=== PATIENT | male | born 1935 | race Caucasian/White ===

== ENCOUNTER 2018-08-22 18:27 | Inpatient (IN) | payer MEDICARE, BC ==
[~2018-08-22 18:27] MED LIST: ISOVUE-370 76%-LOCM 1 ML ONE
[2018-08-22] MEDS ORDERED: Ondansetron HCl/PF 4 MG/2 ML Vial ONE (19:13)
[2018-08-22 19:32] LABS: Hemoglobin 15.6 g/dL (14.0-18.0); Mean Corpuscular HGB CONC 33.8 g/dL (32.0-36.0); Mean Corpuscular Hemoglobin 33.4 pg (27.0-31.0); Mean Corpuscular Volume 98.8 fL (78.0-98.0); Platelet Count 457 thou/uL (130-400); RBC Distribution Width 12.4 % (11.5-14.5); Red Blood Cell (RBC) Count 4.66 mill/uL (4.70-6.10); White Blood Cell (WBC) Count 30.4 thou/uL (4.8-10.8)
[2018-08-22 19:49] LABS: ALT (SGPT) 52 U/L (8-55); AST (SGOT) 38 U/L (5-34); Albumin 4.1 g/dL (3.4-4.8); Alkaline Phosphatase 140 U/L (40-150); Anion Gap 22 mmol/L (10-20); BUN (Urea Nitrogen) 32 mg/dL (8.4-25.7); Bilirubin, Total 1.4 mg/dL (0.2-1.2); CK (CPK) 113 U/L (30-200); Calc. Creatinine Clearance 0 mL/min (70-130); Calcium 9.6 mg/dL (7.8-10.44); Carbon Dioxide 17 mmol/L (23-31); Chloride 102 mmol/L (98-107); Estimated GFR-MDRD 51; Globulin 3.8 g/dL (2.4-3.5); Glucose 177 mg/dL (83-110); Lipase 15 U/L (8-78); Potassium 4.4 mmol/L (3.5-5.1); Protein, Total 7.9 g/dL (5.8-8.1); Sodium 137 mmol/L (136-145)
[2018-08-22 19:52] LABS: Band 21 % (5-11); Lymphocytes 1 % (21-51); MDiff Complete? YES; Neutrophil 77 % (42-75); PLT Morphology Comment Appears Increased; RBC Morphology Normal; Reactive Lymphocytes 1 % (0-10); Vacuoles SLIGHT
[2018-08-22 20:07] LABS: Bilirubin Small (Negative); Blood, Urine Negative (Negative); Clarity CLEAR (Clear); Glucose, Urine (Dipstick) Negative (Negative); Leukocyte Trace (Negative); Nitrite Negative (Negative); Protein, Urine (Dipstick) 100 mg/dL (Neg-Trace); Specific Gravity, Urine 1.023 (1.002-1.036); pH, Urine 5.5 (5.0-9.0)
[2018-08-22 20:08] LABS: Bacteria/HPF None Seen HPF (None Seen); Hyaline Casts/LPF 7-10 HYALINE CAST LPF (0-3 Hyaline); Pathc Cast-AUWi Flag 1.88 (0-2.49); Squamous Epithelial 0-3 HPF (0-3); WBC/HPF 0-3 HPF (0-3)
--- NOTE | 2018-08-22 20:56 | RAD ---
CHEST ONE VIEW: 08/22/18 COMPARISON: None. HISTORY: Cough. FINDINGS: Diminished lung volumes. No consolidation or mass. No pneumothorax or osseous abnormalities. Normal cardiac silhouette when taking technique into consideration. IMPRESSION: No acute cardiopulmonary process. POS: [facility]
[2018-08-22] MEDS ORDERED: Aztreonam 2 GM in Sodium Chloride 0.9% 100 ML IVPB SCH (21:00)
[2018-08-22] MEDS ORDERED: Acetaminophen 650 MG Suppository PR PRN (22:14)
[2018-08-22] MEDS ORDERED: Acetaminophen 325 MG TAB PO PRN (22:14)
[2018-08-22] MEDS ORDERED: Dextrose 5% in Water 1,000 ML IV PRN (22:28)
[2018-08-22] MEDS ORDERED: Dextrose 50% Abboject 50 ML SYRINGE SLOW IVP PRN (22:28)
[2018-08-22] MEDS ORDERED: HumaLOG 300 UNITS/3 ML VIAL SC PRN (22:28)
[2018-08-22 23:23] LABS: Lactic Acid 4.4 mmol/L (0.5-2.2)
[2018-08-22] MEDS: Sodium Chloride 0.9% 1,000 ML IV SCH (23:52)
[2018-08-23 00:31] VITALS: BMI 29.6
--- NOTE | 2018-08-23 01:19 | HP ---
DATE OF ADMISSION: 08/22/2018 CHIEF COMPLAINT: Nausea, vomiting, and diarrhea. HISTORY OF PRESENT ILLNESS: This is an 82-year-old male with past medical history of diabetes mellit us type 2, hyperlipidemia, hypertension, who presented with nausea, vomiting, and diarrhea. Per the patient, this all started around 10:00 a.m. on the day of admission. Patient stated that his wa s the first started vomiting, the vomited about 5 times and the [facility] called their primary care physician and per primary care physician, the was instr ucted to come to the hospital to be evaluated. During the time when the was in the hospital, pe r the patient about 10:00 a.m., he started having abdominal pain and vomiting. Patient stated that h e vomited x7 nonbloody, nonbilious vomitus and the caregivers then advised the patient to also come t o the hospital to be checked. Per the patient, the caregivers were worried that whatever infection t hat the had, had been passed onto the patient as well. Patient states that they have not eaten anything new rather they both had food from the same kitchen and patient said that he had fried catfi sh and he believes that this is a very good food and normally the food from the facility that they li ve at has been great and he does not know what happened this time around. Patient stated during the time of his vomitus, he also had liquid diarrhea x3. Patient denies any headache, fever, chills, hem aturia, or dysuria. REVIEW OF SYSTEMS: Positive for nausea, vomiting, abdominal discomfort and diarrhea, otherwise as do cumented in the HPI. All other systems were reviewed and are negative. 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 FAMILY HISTORY: Reviewed and noncontributory. PAST SURGICAL HISTORY: Patient had surgery to the thigh after spider bite, history of hernia repair, and foot big toe amputation. PSYCHIATRIC HISTORY: No previous psychiatric history. SOCIAL HISTORY: Patient denies alcohol use. Patient denies any illicit drug use. Patient denies an y smoking. ALLERGIES: Patient is allergic to PENICILLINS. CURRENT MEDICATIONS: Patient is on aspirin 81 mg, amlodipine 5 mg, Centrum, metformin 1000 mg, and i nsulin. PHYSICAL EXAMINATION: VITAL SIGNS: Blood pressure 142/78, pulse 125, respiratory rate of 16, temperature of 100, O2 satura tion of 97 on room air. GENERAL: Patient is lying in his bed comfortably, able to speak in full sentences, alert and oriente d x3, not in any distress. HEENT: Normocephalic, atraumatic. Pupils are equally round and reactive to light. Extraocular musc les are intact. No scleral icterus. Patient has left eye blindness and patient sees shadows from th e right eye. Patient is not able to see clearly. NECK: Supple, nontender, nondistended. Trachea is midline. No JVDs. RESPIRATORY: Clear to auscultation bilaterally. No wheezing, no rales, no rhonchi. CARDIOVASCULAR: Positive S1, S2. Regular rate and rhythm. No murmurs, no gallops or rubs appreciat ed. ABDOMEN: Obese abdomen, nontender, nondistended, positive bowel sounds in all quadrants. No masses. No pulsatile masses. No peritoneal signs. No rigidity, no guarding. EXTREMITIES: Upper extremities, patient has 5/5 upper extremity strength and 5/5 lower extremity str ength, good pulses at the upper extremity and lower extremity bilaterally. Patient has right big toe amputation. There is no edema noted. NEUROLOGIC: Cranial nerves II-XII grossly intact. No neurologic deficits noted. SKIN: Warm, dry, and intact. PSYCHIATRIC: Alert, oriented x3, normal affect, very pleasant. IMAGING: Chest x-ray showed no cardiopulmonary process. CT of the abdomen and pelvis with contrast. There is some inflammation of small terminal valvular. ED COURSE: Patient was started on vancomycin and Azactam and patient was given normal saline. LABORATORY DATA: WBC is 30.4, hemoglobin 15.6, hematocrit 46.1, MCV is 98.8, RDW 12.4, platelet coun t is 157, bands of 21. Chemistry: Sodium 137, potassium is 4.4, chloride is 102, carbon dioxide of 17, BUN is 22, creatinine is 1.34, GFR is 51, glucose 177. Lactic acid of 6.8. Total bilirubin is 1 .4, AST is 38, ALT is 62, alkaline phosphatase 140. Creatine kinase 113, lipase of 15. Urinalysis negative for nitrites, trace leukoesterase. ASSESSMENT AND PLAN: This is an 82-year-old male being admitted for vomiting and diarrhea, likely se condary to gastroenteritis. At this point, we will continue patient on IV fluids. We will follow up on lactic acid. We will continue antibiotics. We will follow up on morning labs and we will follow up on blood cultures. We will adjust antibiotics based on cultures. 1. Diarrhea. We have ordered stool cultures and Clostridium difficile. We will follow up on these cultures. 2. Acute kidney injury most likely prerenal in etiology. Patient has been having vomiting and diarr hea. Therefore, this can be contributory factor for patient's elevated creatinine. At this point, w e are hydrating the patient with IV fluids. We will follow up on morning labs. 3. History of diabetes mellitus. We will continue patient on insulin sliding scale. 4. Hypertension. Currently, patient's blood pressure is within normal limits. We will give patient blood pressure medication as needed. We will monitor the patient's blood pressure closely. 5. Hyperlipidemia. We will continue patient on his current management. 6. Deep venous thrombosis and gastrointestinal prophylaxis.
[2018-08-23 05:37] LABS: #Eosinphils 0.1 thou/uL (0.0-0.7); #Monocytes 0.6 thou/uL (0.11-0.59); %Basophils 0.2 % (0.0-1.0); %Eosinophils 0.4 % (0.0-10.0); %Neutrophils 86.5 % (42.0-75.0); Hemoglobin 13.2 g/dL (14.0-18.0); Mean Corpuscular HGB CONC 33.5 g/dL (32.0-36.0); Mean Corpuscular Hemoglobin 33.6 pg (27.0-31.0); Mean Platelet Volume 7.7 fL (7.4-10.4); Platelet Count 348 thou/uL (130-400); RBC Distribution Width 12.5 % (11.5-14.5); Red Blood Cell (RBC) Count 3.92 mill/uL (4.70-6.10); White Blood Cell (WBC) Count 19.6 thou/uL (4.8-10.8)
[2018-08-23 06:01] LABS: ALT (SGPT) 39 U/L (8-55); AST (SGOT) 45 U/L (5-34); Albumin 3.1 g/dL (3.4-4.8); Alkaline Phosphatase 87 U/L (40-150); Anion Gap 12 mmol/L (10-20); BUN (Urea Nitrogen) 31 mg/dL (8.4-25.7); BUN/Creatinine Ratio 26.72; Bilirubin, Total 0.9 mg/dL (0.2-1.2); Calc. Creatinine Clearance 67 mL/min (70-130); Calcium 8.2 mg/dL (7.8-10.44); Carbon Dioxide 23 mmol/L (23-31); Chloride 108 mmol/L (98-107); Estimated GFR-MDRD 61; Globulin 3.5 g/dL (2.4-3.5); Glucose 94 mg/dL (83-110); Phosphorus 2.6 mg/dL (2.3-4.7); Potassium 4.3 mmol/L (3.5-5.1); Protein, Total 6.6 g/dL (5.8-8.1); Sodium 139 mmol/L (136-145)
[2018-08-23] MEDS: Aztreonam 1 GM in Sodium Chloride 0.9% 100 ML IVPB SCH ×3 (06:22→21:34)
[2018-08-23] MEDS: Vancomycin HCl 750 MG in Sodium Chloride 0.9% 250 ML 250 ML IVPB SCH ×2 (09:05→20:05)
[2018-08-23] MEDS: Enoxaparin Sodium 30 MG/0.3 ML SYRINGE SC SCH (09:09)
[2018-08-23] MEDS: Famotidine 20 MG TAB PO SCH (09:09)
[2018-08-23] MEDS: Famotidine/PF 20 mg/2ml Vial SLOW IVP SCH (09:09)
--- NOTE | 2018-08-23 10:27 | PQF ---
CLINICAL DOCUMENTATION IMPROVEMENT CLARIFICATION FORM: ICD-10 Updated PLEASE DO AN ADDENDUM TO THE PROGRESS NOTE WITH ANY DOCUMENTATION UPDATES OR ADDITIONS AND CARRY THROUGH TO DC SUMMARY. THANK YOU. DATE: 08/23/18 ATTN: DR. CURRIE Please exercise your independent, professional judgment in responding to the clarification form. Clinical indicators are provided on the bottom of this form for your review Please check appropriate box(es): [ x] Sepsis due to: (Pna, UTI, gangrenous gall bladder, etc.) Gastroenteritis Due to: [ ] Device (please specify) [ ] Implant [ ] Graft [ ] Infusion [ ] SIRS due to non-infectious process (please specify etiology) [ ] with organ dysfunction [ ] without organ dysfunction [ ] Severe sepsis with acute organ dysfunction of: (Examples: respiratory failure, encephalopathy, acute kidney failure, other) [ ] Septic Shock [ ] Localized infection without sepsis [ ] Other diagnosis [ ] Unable to determine In addition, please specify: Present on Admission (POA): [ ] Yes [ ] No [ ] Unable to determine For continuity of documentation, please document condition throughout progress notes and discharge summary. Thank You. CLINICAL INDICATORS - SIGNS / SYMPTOMS / LABS ER NOTE: "SEPSIS" 08/22 WBC: 30.4 BANDS 21 LACTIC ACID 6.8 08/23: RR 24 RISKS: NAUSEA (ER NOTE) VOMITING (ER NOTE) DIARRHEA (ER NOTE) TREATMENT: SERIAL LABS BLOOD CULTURES IV AZACTAM (ER-PRESENT) IV VANCOMYCIN (ER-PRESENT) IV FLUIDS (ER-PRESENT) (This form is maintained as a part of the permanent medical record) 2014 [employer]. All Rights Reserved ELIANA [email or web address] Office: [phone] [facility]
--- NOTE | 2018-08-23 10:36 | CT ---
ABDOMEN CT WITH CONTRAST PELVIC CT WITH CONTRAST 08/22/18 HISTORY: Toxic appearing patient. Lactic acidosis. Vomiting. Nausea and diarrhea. COMPARISON: None. FINDINGS: ABDOMEN CT: Subpleural lymph node along the middle lobe measuring 4 mm. Chronic changes of the lung bases are richie pected. Heart size is normal. No significant pericardial fluid. The descending thoracic aorta and abd ominal aorta have a normal caliber. No periaortic fat stranding. Symmetric attenuation of the psoas m uscles. Portal vein is patent. CT evidence of cholelithiasis without evidence of cholecystitis. Liver, spleen, pancreas, and adrenal glands have appropriate enhancement. No gastrohepatic, retrocrur al or periportal lymphadenopathy. Nonspecific peripancreatic lymph node measuring 1.2 x 1.1 cm. Subcentimeter hypodensity in the left and right kidney cannot be further characterized. 1.1 cm hypode nsity in the lower pole of the left kidney has some liner densities which may represent enhancement. Evaluation is incomplete. Bilaterally, no obstructive uropathy. No mesenteric mass, lymphadenopathy, free air or free fluid. Limited evaluation of the alimentary canal by the lack of oral contrast. Gastric mucosa, duodenum, an d small bowel loops have an overall normal caliber. Ileocecal junction is normal. Normal caliber appe ndix. There is evidence of diverticulosis. No evidence of diverticulitis. Scattered fecal material in a nondistended, nondilated colon. PELVIC CT: Urinary bladder is unremarkable. No pelvic mass, lymphadenopathy, free air or free fluid. Mild prosta tic hypertrophy. Left inguinal hernia containing mesenteric fat. No lytic or blastic lesions in the o sseous structures. 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 IMPRESSION: 1. No acute abnormality in the abdomen or pelvis. 2. CT evidence of cholelithiasis without evidence of cholecystitis. 3. Diverticulosis, without evidence of diverticulitis. 4. Indeterminate lesion in the lower pole of the left kidney. Better interrogation with a noneme rgent abdomen with and without contrast MRI is recommended. POS: [facility]
--- NOTE | 2018-08-23 10:48 | PDOC.EVN ---
Event Note - Event Note Event Note: Doing well overall. His vomiting has stopped. Still having some diarrhea. Workup negative, suggesting viral etiology. WBC coming down quickly. Continue fluids, IV abx and start clear liquids at patient request. Abd. exam is benign.
[2018-08-23] MEDS: Sodium Chloride 0.9% 1,000 ML IV SCH (14:11)
[2018-08-24] MEDS: Aztreonam 1 GM in Sodium Chloride 0.9% 100 ML IVPB SCH (05:15)
[2018-08-24] MEDS: Sodium Chloride 0.9% 1,000 ML IV SCH (05:15)
[2018-08-24 08:21] LABS: #Eosinphils 0.3 thou/uL (0.0-0.7); #Monocytes 0.8 thou/uL (0.11-0.59); #Neutrophils 5.2 thou/uL (1.40-6.50); %Basophils 0.4 % (0.0-1.0); %Lymphocytes 23.6 % (21.0-51.0); %Monocytes 9.6 % (0.0-10.0); %Neutrophils 62.4 % (42.0-75.0); Hemoglobin 12.1 g/dL (14.0-18.0); Mean Corpuscular HGB CONC 33.3 g/dL (32.0-36.0); Mean Corpuscular Hemoglobin 33.1 pg (27.0-31.0); Mean Corpuscular Volume 99.4 fL (78.0-98.0); Mean Platelet Volume 7.6 fL (7.4-10.4); Platelet Count 291 thou/uL (130-400); RBC Distribution Width 12.4 % (11.5-14.5); Red Blood Cell (RBC) Count 3.67 mill/uL (4.70-6.10); White Blood Cell (WBC) Count 8.4 thou/uL (4.8-10.8)
[2018-08-24 08:37] LABS: Anion Gap 10 mmol/L (10-20); BUN (Urea Nitrogen) 19 mg/dL (8.4-25.7); Calc. Creatinine Clearance 84 mL/min (70-130); Calcium 7.6 mg/dL (7.8-10.44); Carbon Dioxide 22 mmol/L (23-31); Chloride 108 mmol/L (98-107); Estimated GFR-MDRD 79; Glucose 85 mg/dL (83-110); Potassium 3.6 mmol/L (3.5-5.1); Sodium 136 mmol/L (136-145); Vancomycin, Trough 9.9 ug/mL
[2018-08-24] MEDS ORDERED: Prevnar 13-Val Conj/PF 0.5 ML SYRINGE IM ONE (09:00)
[2018-08-24] MEDS ORDERED: Vancomycin HCl 1.25 GM in Sodium Chloride 0.9% 250 ML 250 ML IVPB SCH (09:00)
[2018-08-24] MEDS: Famotidine/PF 20 mg/2ml Vial SLOW IVP SCH (09:41)
[2018-08-24] MEDS: Famotidine 20 MG TAB PO SCH (09:41)
[2018-08-24] MEDS: Enoxaparin Sodium 30 MG/0.3 ML SYRINGE SC SCH (09:41)
--- NOTE | 2018-08-24 14:43 | PDOC.PN ---
- Subjective Encounter Start Date: 08/24/18 Encounter Start Time: 10:15 Feeling much better overall. Ready for regular food. Eager to go home. His has been here as well and she is discharging today. - Objective Resuscitation Status: Resuscitation Status DNR:Do Not Resuscitate Vital Signs & Weight: Vital Signs (12 hours) Temp Pulse Resp BP Pulse Ox 08/24/18 12:13 97.9 F 70 24 H 124/64 92 L 08/24/18 09:35 96 08/24/18 08:00 97.8 F 66 24 H 117/56 L 86 L 08/24/18 04:00 99.2 F 69 20 108/57 L 92 L Weight Weight 204 lb 9 oz I&O: 08/23/18 08/24/18 08/25/18 06:59 06:59 06:59 Intake Total 420 3550 Output Total 500 400 Balance -80 3150 Result Diagrams: 08/24/18 07:55 08/24/18 07:55 Additional Labs: Accuchecks 08/24/18 08/24/18 08/23/18 10:55 05:55 20:53 POC Glucose 140 H 81 103 08/23/18 16:49 POC Glucose 93 Phys Exam - Physical Examination Constitutional: NAD Blind Respiratory: no wheezing, no rales, no rhonchi, clear to auscultation bilateral Cardiovascular: RRR, no significant murmur Gastrointestinal: soft, non-tender, no distention, positive bowel sounds Musculoskeletal: no edema Psychiatric: normal affect Dx/Plan (1) Sepsis Code(s): A41.9 - SEPSIS, UNSPECIFIED ORGANISM Status: Acute Comment: Resolved. (2) Gastroenteritis Code(s): K52.9 - NONINFECTIVE GASTROENTERITIS AND COLITIS, UNSPECIFIED Status : Acute Comment: Resolved. Advance diet. (3) Hypoxia Code(s): R09.02 - HYPOXEMIA Status: Acute Comment: CXR. PRN oxygen. (4) Acute kidney injury Code(s): N17.9 - ACUTE KIDNEY FAILURE, UNSPECIFIED Status: Acute Comment: Resolved with fluid. - Plan * Advance diet. CXR.
--- NOTE | 2018-08-24 14:50 | RAD ---
PORTABLE CHEST 1 VIEW: Date: 08/24/18 Time: 1225 hours HISTORY: Dyspnea. FINDINGS/IMPRESSION: Comparison made with exam of 08/22/18. The heart size is normal. No lobar consolidation, pneumothoraces, or large effusions are seen. No beth dence of nic pulmonary edema. POS: [facility]
[2018-08-24] MEDS: metroNIDAZOLE 250 MG TAB PO SCH ×2 (15:40→20:12)
[2018-08-24] MEDS: Ciprofloxacin 500 MG TAB PO SCH (20:12)
[2018-08-25 05:38] LABS: #Eosinphils 0.3 thou/uL (0.0-0.7); #Lymphocytes 2.4 thou/uL (1.20-3.40); #Monocytes 0.8 thou/uL (0.11-0.59); #Neutrophils 3.9 thou/uL (1.40-6.50); %Basophils 0.3 % (0.0-1.0); %Eosinophils 4.5 % (0.0-10.0); %Lymphocytes 32.7 % (21.0-51.0); %Monocytes 10.3 % (0.0-10.0); %Neutrophils 52.2 % (42.0-75.0); Hemoglobin 13.1 g/dL (14.0-18.0); Mean Corpuscular HGB CONC 34.2 g/dL (32.0-36.0); Mean Corpuscular Hemoglobin 33.7 pg (27.0-31.0); Mean Corpuscular Volume 98.6 fL (78.0-98.0); Mean Platelet Volume 7.5 fL (7.4-10.4); Platelet Count 323 thou/uL (130-400); RBC Distribution Width 12.5 % (11.5-14.5); Red Blood Cell (RBC) Count 3.89 mill/uL (4.70-6.10); White Blood Cell (WBC) Count 7.4 thou/uL (4.8-10.8)
[2018-08-25 05:41] LABS: Anion Gap 10 mmol/L (10-20); BUN (Urea Nitrogen) 12 mg/dL (8.4-25.7); Calc. Creatinine Clearance 91 mL/min (70-130); Calcium 8.2 mg/dL (7.8-10.44); Carbon Dioxide 24 mmol/L (23-31); Chloride 109 mmol/L (98-107); Estimated GFR-MDRD 87; Glucose 110 mg/dL (83-110); Potassium 3.8 mmol/L (3.5-5.1); Sodium 139 mmol/L (136-145)
[2018-08-25] MEDS: Ciprofloxacin 500 MG TAB PO SCH (08:23)
[2018-08-25] MEDS: Enoxaparin Sodium 30 MG/0.3 ML SYRINGE SC SCH (08:23)
[2018-08-25] MEDS: metroNIDAZOLE 250 MG TAB PO SCH (08:24)
[2018-08-25] MEDS: Famotidine/PF 20 mg/2ml Vial SLOW IVP SCH (08:24)
[2018-08-25] MEDS: Famotidine 20 MG TAB PO SCH (08:24)
[2018-08-25 11:53] VITALS: BP 156/74; TEMP 98.5
--- NOTE | 2018-08-25 23:08 | DIS ---
DATE OF ADMISSION: 08/22/2018 DATE OF DISCHARGE: 08/25/2018 DISCHARGE DIAGNOSES: 1. Sepsis. 2. Acute gastroenteritis. 3. Acute renal insufficiency. 4. Diabetes mellitus. 5. Hypertension. 6. Hyperlipidemia. HISTORY: The patient is an 82-year-old male who presented via the emergency department complaining of significant intractable nausea, vomiting, and diarrhea. The patient was initially noted to have a white count of 30,000 with 21% bands. He was initially afebrile and he was felt to be suffering from sepsis related to acute gastroenteritis. Lactic acid was initially elevated at 6.8. His creatinine was slightly elevated at 1.34. HOSPITAL COURSE: The patient was admitted to the hospital with sepsis, started on broad spectrum antibiotics to cover GI sources. He had initial aggressive hydration. Lactic acid level did come down. His creatinine subsequently normalized as well. White count came down to the normal range on the day of discharge at 7.4. His symptoms of nausea, vomiting, and diarrhea had resolved very promptly after the time of his admission. He was able to return to regular diet without much difficulty. The patient did have slight hypoxia the day prior to discharge. It is felt that this might be due to some volume resuscitation. He had a chest x-ray which failed to reveal any significant pathology. By the following day, he was able to come off the oxygen and has reasonably good room air saturations. With the patient on p.o. antibiotics, tolerating a regular diet, being asymptomatic with a normalized white count and creatinine, he was felt to be stable for discharge to home. DISCHARGE PLAN: The patient is discharged home. He is to continue a diabetic diet. His activity level is as tolerated. DISCHARGE MEDICATIONS: He will be prescribed Cipro 500 mg b.i.d. and metronidazole 250 mg t.i.d. He will continue with metformin, fish oil, Centrum Silver, Tresiba, aspirin, Norvasc, vitamin C. He will have [facility] and he is to follow up with Dr. John within 7 days. He can return to the emergency department should he have any problems prior to that time. HONG
== END 2018-08-25 13:48 | disposition home health service (06) | DRG 872 ==
LOC: ERS 18:27 → 2NO 20:40
PROVIDERS: ADMIT Internal Medicine; ATTEND Internal Medicine
DX: A41.9 Sepsis, unspecified organism (principal); N17.9 Acute kidney failure, unspecified; A09 Infectious gastroenteritis and colitis, unspecified; E11.9 Type 2 diabetes mellitus without complications; I10 Essential (primary) hypertension; E78.5 Hyperlipidemia, unspecified; E11.319 Type 2 diabetes mellitus with unspecified diabetic retinopathy without macular edema; H54.62 Unqualified visual loss, left eye, normal vision right eye; Z88.0 Allergy status to penicillin; Z79.899 Other long term (current) drug therapy; Z79.82 Long term (current) use of aspirin; Z79.84 Long term (current) use of oral hypoglycemic drugs; Z79.4 Long term (current) use of insulin; R09.02 Hypoxemia
CPT/HCPCS: 36415; 36416; 71045; 74177; 80048; 80053; 80069; 80202; 81003; 81015; 82550; 83605; 83690; 85025; 87040; 87045; 87046; 87086; 87324; 87449; 87899; 96361; 96365; 96367; 96375; J1650; J2405; J3370; J3490; J7050; S0028

== ENCOUNTER 2019-11-04 16:12 | Emergency (ER) | payer MEDICARE, BC ==
[2019-11-04 16:50] LABS: #Eosinphils 0.3 thou/uL (0.0-0.7); #Monocytes 0.8 thou/uL (0.11-0.59); #Neutrophils 8.9 thou/uL (1.40-6.50); %Basophils 0.4 % (0.0-1.0); %Eosinophils 2.6 % (0.0-10.0); %Lymphocytes 16.5 % (21.0-51.0); %Monocytes 6.3 % (0.0-10.0); %Neutrophils 74.2 % (42.0-75.0); Hemoglobin 14.2 g/dL (14.0-18.0); Mean Corpuscular HGB CONC 34.1 g/dL (32.0-36.0); Mean Corpuscular Hemoglobin 33.8 pg (27.0-31.0); Mean Platelet Volume 7.5 fL (7.4-10.4); Platelet Count 383 thou/uL (130-400); RBC Distribution Width 12.2 % (11.5-14.5); Red Blood Cell (RBC) Count 4.19 mill/uL (4.70-6.10)
[2019-11-04 17:18] LABS: ALT (SGPT) 36 U/L (8-55); AST (SGOT) 34 U/L (5-34); Albumin 4.1 g/dL (3.4-4.8); Alkaline Phosphatase 131 U/L (40-110); Anion Gap 17 mmol/L (10-20); BUN (Urea Nitrogen) 22 mg/dL (8.4-25.7); Bilirubin, Total 0.5 mg/dL (0.2-1.2); Calc. Creatinine Clearance 0 mL/min (70-130); Calcium 9.6 mg/dL (7.8-10.44); Carbon Dioxide 21 mmol/L (23-31); Chloride 101 mmol/L (98-107); Estimated GFR-MDRD 58; Globulin 3.5 g/dL (2.4-3.5); Glucose 186 mg/dL (83-110); Potassium 4.2 mmol/L (3.5-5.1); Protein, Total 7.6 g/dL (5.8-8.1); Sodium 135 mmol/L (136-145)
--- NOTE | 2019-11-04 17:31 | CT ---
CT head without contrast: Multiple axial tomograms obtained through the head without IV enhancement. INDICATIONS: Fall with injury to head COMPARISON: None FINDINGS: Ventricles have normal size and position. No evidence of intracranial mass, hemorrhage, edema, or infarct. Visualized sinuses and mastoids appear clear. Bony calvarium appears unremarkable. IMPRESSION: No acute finding
--- NOTE | 2019-11-04 17:35 | CT ---
CT cervical spine without contrast: Multiple axial tones obtained through cervical spine with multiplanar reconstruction. INDICATIONS: trauma with cervical spine injury COMPARISON: none FINDINGS: Cervical vertebra maintain normal height and alignment.. Disc spaces are normal. Posterior elements are normally aligned. No evidence of fracture. IMPRESSION: No acute finding
[2019-11-04] MEDS ORDERED: Bacitracin 1 PK ONE (18:02)
[2019-11-04] MEDS ORDERED: Ibuprofen 200 MG TAB ONE (18:02)
== END 2019-11-04 20:01 | disposition home or self-care (01) ==
LOC: ERS 16:12
DX: S01.01XA Laceration without foreign body of scalp, initial encounter (principal); E11.9 Type 2 diabetes mellitus without complications; E78.5 Hyperlipidemia, unspecified; E78.00 Pure hypercholesterolemia, unspecified; I10 Essential (primary) hypertension; Z79.84 Long term (current) use of oral hypoglycemic drugs; Z79.82 Long term (current) use of aspirin; Z79.899 Other long term (current) drug therapy; W01.198A Fall on same level from slipping, tripping and stumbling with subsequent striking against other object, initial encounter
CPT/HCPCS: 12002; 36415; 70450; 72125; 80053; 85025; 93005

== ENCOUNTER 2020-04-04 18:42 | Inpatient (IN) | payer MEDICARE, BC ==
[2020-04-04] MEDS ORDERED: Lidocaine 1% (PF) 30 ML VIAL ONE (19:50)
[2020-04-04 19:58] LABS: #Basophils 0.1 thou/uL (0.0-0.2); #Eosinphils 0.1 thou/uL (0.0-0.7); #Lymphocytes 2.2 thou/uL (1.20-3.40); #Neutrophils 14.3 thou/uL (1.40-6.50); %Basophils 0.4 % (0.0-1.0); %Eosinophils 0.6 % (0.0-10.0); %Lymphocytes 12.4 % (21.0-51.0); %Monocytes 5.7 % (0.0-10.0); Hemoglobin 13.7 g/dL (14.0-18.0); Mean Corpuscular HGB CONC 32.9 g/dL (32.0-36.0); Mean Platelet Volume 8.1 fL (7.4-10.4); Platelet Count 361 thou/uL (130-400); RBC Distribution Width 12.6 % (11.5-14.5); Red Blood Cell (RBC) Count 4.14 mill/uL (4.70-6.10); White Blood Cell (WBC) Count 17.7 thou/uL (4.8-10.8)
[2020-04-04 20:18] LABS: ALT (SGPT) 46 U/L (8-55); AST (SGOT) 44 U/L (5-34); Albumin 3.7 g/dL (3.4-4.8); Alkaline Phosphatase 152 U/L (40-110); Anion Gap 18 mmol/L (10-20); BUN (Urea Nitrogen) 23 mg/dL (8.4-25.7); Bilirubin, Total 0.5 mg/dL (0.2-1.2); CK (CPK) 189 U/L (30-200); Calc. Creatinine Clearance 0 mL/min (70-130); Calcium 9.5 mg/dL (7.8-10.44); Carbon Dioxide 20 mmol/L (23-31); Chloride 104 mmol/L (98-107); Estimated GFR-MDRD 64; Globulin 3.4 g/dL (2.4-3.5); Glucose 145 mg/dL (83-110); Potassium 4.1 mmol/L (3.5-5.1); Protein, Total 7.1 g/dL (5.8-8.1); Sodium 138 mmol/L (136-145)
--- NOTE | 2020-04-04 20:18 | RAD ---
SINGLE VIEW OF THE CHEST: 04/04/20 COMPARISON: 11/24/17 HISTORY: Fall from standing. FINDINGS: Single view of the chest shows normal sized cardiomediastinal silhouette. There is stable obscurity o f the left hemidiaphragm which may represent scarring in the left lung base. No obvious consolidation , mass or pleural effusion are seen. IMPRESSION: No evidence of acute cardiopulmonary disease. POS: [facility]
--- NOTE | 2020-04-04 21:02 | CT ---
CT CERVICAL SPINE WITHOUT CONTRAST: 04/04/20 COMPARISON: None. HISTORY: Head trauma with neck pain. TECHNIQUE: Multiple contiguous axial images were obtained in a CT of the cervical spine without contrast. Sagitt al and coronal reformats were performed. FINDINGS: Moderate degenerative changes are seen in the mid cervical spine, unchanged. The vertebral bodies dem onstrate normal height and alignment without acute fracture or subluxation. No prevertebral soft tiss ue swelling is seen. The posterior facets are well aligned. Normal alignment of the skull base with the cervical spine is seen. IMPRESSION: Degenerative changes of the cervical spine without acute osseous abnormality. POS: [facility]
--- NOTE | 2020-04-04 21:05 | CT ---
CT OF THE BRAIN WITHOUT CONTRAST: 04/04/20 COMPARISON: 11/04/19 HISTORY: Fall from standing with head trauma. TECHNIQUE: Multiple contiguous axial images were obtained in a CT of the brain without contrast. FINDINGS: The brain is normal in morphology and attenuation without focal lesions or confluent areas of infarct ion. There is no evidence of hydrocephalus, intracranial hemorrhage, or extra-axial fluid collection. Calcification of the left globe is again seen. Soft tissue swelling is seen in the left periorbital s oft tissues. The visualized paranasal sinuses and mastoid air cells are well aerated. IMPRESSION: No evidence of acute intracranial abnormality. POS: [facility]
[2020-04-04 21:40] LABS: Bacteria/HPF None Seen HPF (None Seen); Bilirubin Negative (Negative); Blood, Urine Negative (Negative); Clarity Clear (Clear); Glucose, Urine (Dipstick) Normal (Negative); Leukocyte 75 Leu/uL (Negative); Nitrite Negative (Negative); Protein, Urine (Dipstick) 30 mg/dL (Neg-Trace); RBC/HPF 0-3 HPF (0-3); Squamous Epithelial 0-3 HPF (0-3)
[2020-04-04] MEDS ORDERED: cefTRIAXone\\ROCEPHIN 1 GM VIAL ONE (22:11)
--- NOTE | 2020-04-04 23:13 | PDOC.HHP ---
Hospitalist HPI - History of Present Illness History of Present Illness: fell, on floor for a few hours, imaging negative, ua equivocal w/ WBC, cxr negative, presumed sepsis due to uti w/ fall Hospitalist Results - Labs Result Diagrams: 04/04/20 19:47 04/04/20 19:47 Lab results: WBC 17.7 thou/uL (4.8-10.8) H 04/04/20 19:47 Hgb 13.7 g/dL (14.0-18.0) L 04/04/20 19:47 Hct 41.6 % (42.0-52.0) L 04/04/20 19:47 MCV 101.0 fL (78.0-98.0) H 04/04/20 19:47 Plt Count 361 thou/uL (130-400) 04/04/20 19:47 Neutrophils % 81.0 % (42.0-75.0) H 04/04/20 19:47 Sodium 138 mmol/L (136-145) 04/04/20 19:47 Potassium 4.1 mmol/L (3.5-5.1) 04/04/20 19:47 Chloride 104 mmol/L (98-107) 04/04/20 19:47 Carbon Dioxide 20 mmol/L (23-31) L 04/04/20 19:47 BUN 23 mg/dL (8.4-25.7) 04/04/20 19:47 Creatinine 1.10 mg/dL (0.7-1.3) 04/04/20 19:47 Glucose 145 mg/dL (83-110) H 04/04/20 19:47 Lactic Acid 3.4 mmol/L (0.5-2.2) H 04/04/20 20:29 Calcium 9.5 mg/dL (7.8-10.44) 04/04/20 19:47 Total Bilirubin 0.5 mg/dL (0.2-1.2) 04/04/20 19:47 AST 44 U/L (5-34) H 04/04/20 19:47 ALT 46 U/L (8-55) 04/04/20 19:47 Alkaline Phosphatase 152 U/L (40-110) H 04/04/20 19:47 Creatine Kinase 189 U/L (30-200) 04/04/20 19:47 Serum Total Protein 7.1 g/dL (5.8-8.1) 04/04/20 19:47 Albumin 3.7 g/dL (3.4-4.8) 04/04/20 19:47 Urine Ketones Trace mg/dL (Negative) A 04/04/20 21:19 Urine Blood Negative (Negative) 04/04/20 21: Urine Nitrite Negative (Negative) 04/04/20: Ur Leukocyte Esterase 75 Ha/uL (Negative) A 04/04/20 21:19 Urine RBC 0-3 HPF (0-3) 04/04/20 21:19 Urine WBC 7-10 HPF (0-3) A 04/04/20 21:19 Ur Squamous Epith Cells 0-3 HPF (0-3) 04/04/20 21:19 Urine Bacteria None Seen HPF (None Seen) 04/04/20 21:19
[2020-04-04 23:22] LABS: Lactic Acid 2.5 mmol/L (0.5-2.2)
[2020-04-05] MEDS ORDERED: Acetaminophen 650 MG Suppository PR PRN (00:09)
[2020-04-05] MEDS ORDERED: Acetaminophen 325 MG TAB PO PRN (00:09)
--- NOTE | 2020-04-05 00:27 | PDOC.HHP ---
Hospitalist HPI - History of Present Illness Tripped and fell History of Present Illness: Patient states he was at home, tripped over his feet and fell on the floor. He is blind. He sustained a laceration above his left eyebrow. He denies feeling unsteady or lightheaded or dizzy prior to falling. He normally uses a cane to walk around his home and a walker for long-distances. He states he has been feeling well in himself. Denies any chest pain, sob, no abdominal pain, n/v. No stool changes or urinary symptoms. Patient states due to the pain and feeling unsteady after falling, it took him 3 hours to crawl to where he could call for help. At present he denies any complaints. He denies any LOC and recalls all events prior and after his fall. ED Course: He had a UA done that showed 75 Leukocyte esterase. Small amount of WBC. Negative for bacteria and nitrites. He was started on Rocephin. CXR done was unremarkable. CT head was negative for acute intracranial abnormalities. Cervical Spine CT showed degenerative changes of the cervical spine without any acute abnormalities. Labs notable for lactic acid of 3.4, CK 189 WCC 17.7, Hgb 13.7, Platelets 361 Hospitalist ROS - Medication Medications: ALLERGIES: Penicillin CURRENT MEDICATIONS: Amlodipine. 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 - Family History Family History: reports: no pertinent history - Social History Smoking Status: Never smoker Alcohol: reports: None Drugs: reports: none Living Situation: Alone Activity level: uses cane/walker - Exam General Appearance: NAD General - other findings: Laceration to above left eyebrow ENT: normocephalic atraumatic, no oropharyngeal lesions Neck: supple, symmetric, no lymphadenopathy Heart: RRR, no murmur, no gallops Respiratory: CTAB, no wheezes, no rales, no ronchi Gastrointestinal: soft, non-tender, non-distended, normal bowel sounds, no guarding, no rigidity Extremities: no edema Skin: no rashes Neurological: cranial nerve grossly intact, normal sensation to touch Musculoskeletal: normal tone, normal strength Psychiatric: normal affect, normal behavior, A&O x 3 Hospitalist Results - Labs Result Diagrams: 04/04/20 19:47 04/04/20 19:47 Lab results: WBC 17.7 thou/uL (4.8-10.8) H 04/04/20 19:47 Hgb 13.7 g/dL (14.0-18.0) L 04/04/20 19:47 Hct 41.6 % (42.0-52.0) L 04/04/20 19:47 MCV 101.0 fL (78.0-98.0) H 04/04/20 19:47 Plt Count 361 thou/uL (130-400) 04/04/20 19:47 Neutrophils % 81.0 % (42.0-75.0) H 04/04/20 19:47 Sodium 138 mmol/L (136-145) 04/04/20 19:47 Potassium 4.1 mmol/L (3.5-5.1) 04/04/20 19:47 Chloride 104 mmol/L (98-107) 04/04/20 19:47 Carbon Dioxide 20 mmol/L (23-31) L 04/04/20 19:47 BUN 23 mg/dL (8.4-25.7) 04/04/20 19:47 Creatinine 1.10 mg/dL (0.7-1.3) 04/04/20 19:47 Glucose 145 mg/dL (83-110) H 04/04/20 19:47 Lactic Acid 2.5 mmol/L (0.5-2.2) H 04/04/20 22:56 Calcium 9.5 mg/dL (7.8-10.44) 04/04/20 19:47 Total Bilirubin 0.5 mg/dL (0.2-1.2) 04/04/20 19:47 AST 44 U/L (5-34) H 04/04/20 19:47 ALT 46 U/L (8-55) 04/04/20 19:47 Alkaline Phosphatase 152 U/L (40-110) H 04/04/20 19:47 Creatine Kinase 189 U/L (30-200) 04/04/20 19:47 Serum Total Protein 7.1 g/dL (5.8-8.1) 04/04/20 19:47 Albumin 3.7 g/dL (3.4-4.8) 04/04/20 19:47 Urine Ketones Trace mg/dL (Negative) A 04/04/20 21:19 Urine Blood Negative (Negative) 04/04/20 21:19 Urine Nitrite Negative (Negative) 04/04/20 21:19 Ur Leukocyte Esterase 75 Ha/uL (Negative) A 04/04/20 21:19 Urine RBC 0-3 HPF (0-3) 04/04/20 21:19 Urine WBC 7-10 HPF (0-3) A 04/04/20 21:19 Ur Squamous Epith Cells 0-3 HPF (0-3) 04/04/20 21:19 Urine Bacteria None Seen HPF (None Seen) 04/04/20 21:19 - Radiology Interpretation CT scan - head Status: report reviewed by me Chest x-ray Status: report reviewed by la Hospitalist H&P A/P - Problem (1) Fall Code(s): W19.XXXA - UNSPECIFIED FALL, INITIAL ENCOUNTER Status: Acute (2) Head injury Code(s): S09.90XA - UNSPECIFIED INJURY OF HEAD, INITIAL ENCOUNTER Status: Acute (3) Laceration of forehead Code(s): S01.81XA - LACERATION W/O FOREIGN BODY OF OTH PART OF HEAD, INIT ENCNTR Status: Acute (4) Lactic acid increased Code(s): E87.2 - ACIDOSIS Status: Acute (5) Leukocytosis Code(s): D72.829 - ELEVATED WHITE BLOOD CELL COUNT, UNSPECIFIED Status: Acute (6) Possible urinary tract infection Code(s): R39.89 - OTHER SYMPTOMS AND SIGNS INVOLVING THE GENITOURINARY SYSTEM Status: Suspected (7) Diabetes mellitus Code(s): E11.9 - TYPE 2 DIABETES MELLITUS WITHOUT COMPLICATIONS Status: Chronic Qualifiers: Diabetes mellitus type: type 2 Diabetes mellitus vermin exterminator insulin use: unspecified senior care insulin use status Diabetes mellitus complication detail : with diabetic retinopathy (8) Hypertension Code(s): I10 - ESSENTIAL (PRIMARY) HYPERTENSION Status: Chronic (9) Hyperlipidemia Code(s): E78.5 - HYPERLIPIDEMIA, UNSPECIFIED Status: Chronic - Plan Plan: Baseline EKG Continue IV fluids. Repeat Lactic acid. Repeat labs in the AM. Leukocytosis possibly reactive vs. underlying infection. UTI suspected. Continue empiric antibiotics. Urine culture pending. Orthostatic BPs ordered. PT/OT consulted. Monitor BP. Monitor glucose. ISS initiated. Reconcile home medications once verified. DVT Prophylaxis: Mechanical SCDs. Surrogate decision maker: His daughter Ira Diop.
[2020-04-05] MEDS: Sodium Chloride 0.9% 1,000 ML IV SCH ×2 (01:41→16:24)
[2020-04-05] MEDS ORDERED: Dextrose 50% Abboject 50 ML SYRINGE SLOW IVP PRN (02:02)
[2020-04-05] MEDS ORDERED: HumaLOG 300 UNITS/3 ML VIAL SC PRN ×2 (02:02)
[2020-04-05] MEDS ORDERED: Dextrose 5% in Water 1,000 ML IV PRN (02:02)
[2020-04-05 03:33] VITALS: BMI 26.0
[2020-04-05 04:25] LABS: #Basophils 0.1 thou/uL (0.0-0.2); #Eosinphils 0.2 thou/uL (0.0-0.7); #Lymphocytes 3.3 thou/uL (1.20-3.40); #Monocytes 1.1 thou/uL (0.11-0.59); #Neutrophils 9.7 thou/uL (1.40-6.50); %Basophils 0.5 % (0.0-1.0); %Eosinophils 1.6 % (0.0-10.0); %Lymphocytes 22.8 % (21.0-51.0); %Monocytes 7.7 % (0.0-10.0); %Neutrophils 67.4 % (42.0-75.0); Hemoglobin 13.1 g/dL (14.0-18.0); Mean Corpuscular HGB CONC 32.5 g/dL (32.0-36.0); Mean Corpuscular Hemoglobin 32.6 pg (27.0-31.0); Mean Platelet Volume 7.9 fL (7.4-10.4); Platelet Count 373 thou/uL (130-400); RBC Distribution Width 12.6 % (11.5-14.5); Red Blood Cell (RBC) Count 4.01 mill/uL (4.70-6.10); White Blood Cell (WBC) Count 14.4 thou/uL (4.8-10.8)
[2020-04-05 04:45] LABS: Anion Gap 14 mmol/L (10-20); BUN (Urea Nitrogen) 21 mg/dL (8.4-25.7); Calc. Creatinine Clearance 76 mL/min (70-130); Calcium 8.9 mg/dL (7.8-10.44); Carbon Dioxide 22 mmol/L (23-31); Chloride 106 mmol/L (98-107); Estimated GFR-MDRD 84; Glucose 100 mg/dL (83-110); Potassium 3.8 mmol/L (3.5-5.1); Sodium 138 mmol/L (136-145)
[2020-04-05] MEDS: Amlodipine 5 MG TAB PO SCH (09:39)
[2020-04-05] MEDS: Aspirin 325 mg Enteric Coated Tablet PO SCH (09:39)
[2020-04-05] MEDS ORDERED: cefTRIAXone\\ROCEPHIN 2 GM in Sodium Chloride 0.9% 100 ML IVPB SCH (22:00)
[2020-04-06] MEDS: Sodium Chloride 0.9% 1,000 ML IV SCH (05:37)
[2020-04-06] MEDS: Aspirin 325 mg Enteric Coated Tablet PO SCH (07:58)
[2020-04-06] MEDS: Amlodipine 5 MG TAB PO SCH (07:58)
[2020-04-06] MEDS ORDERED: metFORMIN 500 MG TAB PO SCH (09:00)
[2020-04-06 15:30] VITALS: BP 150/71; TEMP 97.7
--- NOTE | 2020-04-07 02:39 | DIS ---
DATE OF ADMISSION: 04/05/2020 DATE OF DISCHARGE: 04/06/2020 DISCHARGE DIAGNOSES: 1. Urinary tract infection. 2. Fall. 3. Laceration of the head. 4. Head injury. 5. Diabetes mellitus. 6. Hypertension. 7. Hyperlipidemia. DISCHARGE MEDICATIONS: 1. Levofloxacin 500 mg orally daily for 5 days. 2. Amlodipine 5 mg orally daily. 3. Aspirin 325 mg orally daily. 4. Metformin 500 mg orally twice daily. 5. Vitamin C 500 mg orally daily. 6. Tresiba insulin 30 units subcu daily. HISTORY OF PRESENT ILLNESS AND HOSPITAL COURSE: The patient is an 84-year-old male with past medical history of hypertension, diabetes mellitus with diabetic retinopathy. The patient is legally blind. He presented to the hospital after he tripped and fell at home. He reported feeling dizzy, but denied loss of consciousness. He had a mild laceration on his face. ER workup revealed evidence of UTI. The patient was admitted to the hospital for IV fluids and IV antibiotics. On the second day of hospitalization, the patient was feeling better and requested to go home. He did not exhibit any signs of sepsis. We will manage with Levaquin for few days. Job ID: [id number]
--- NOTE | 2020-04-08 06:22 | PQF ---
NORMA ZAIDI MOEZ [id number] [facility] [id number] CLINICAL DOCUMENTATION CLARIFICATION FORM: POST DISCHARGE Addendum to original discharge summary date: ____ Late entry note date: __ DATE:04/08/2020 ATTN:Darryn Valdivia Please exercise your independent, professional judgment in responding to the clarification form. Clinical indicators are provided on the bottom of this form for your review Please check appropriate box(s) to clarify if the following diagnosis has been ruled in or ruled out: Sepsis [ > ] Ruled in diagnosis [ ] Continue to treat [ ] Resolved [ ] Ruled out diagnosis [ ] Cannot rule out diagnosis [ ] Other diagnosis [ ] Unable to determine For continuity of documentation, please document condition throughout progress notes and discharge summary. Thank You. CLINICAL INDICATORS - SIGNS / SYMPTOMS / LABS Laboratory 04/04 WBC 17.7, Neutrophils 81.0, Plt count 361, lactic acid 3.4 Vital signs 04/04 BP 143/63, Pulse 91, Resp 20, Temp 98.3 ED notes p8 04/04 Labs indicative of Sepsis with leukocytosis and elevated lactate. UA Equivocal for URI nut is the most likely source ED notes p9 04/04 Sepsis secondary to UTI H&P p4 04/04 Lactic acid increased, Leukocytosis DS p1 04/06 He did not exhibit any signs of sepsis Collected 04/04 Blood culture: no growth at 48 hrs RISK FACTORS H&P p4 04/04 84 year-old male H&P p4 04/04 DM H&P p4 04/04 UTI H&P p4 04/04 HTN H&P p1 04/04 Left eyebrow laceration TREATMENTS JAN 22 IV Rocephin 1gm JAN 22 IVF NS 1L Collected 04/04 Blood culture (This form is maintained as a part of the permanent medical record) 2014 [employer]. All Rights Reserved [email or web address] [email or web address] PET[facility] VA MEDICAL CENTERHiginio
--- NOTE | 2020-04-08 15:49 | EKG ---
Test Reason : Blood Pressure : / mmHG Vent. Rate : 095 BPM Atrial Rate : 095 BPM P-R Int : 234 ms QRS Dur : 086 ms QT Int : 374 ms P-R-T Axes : 088 -29 066 degrees QTc Int : 469 ms Sinus rhythm with 1st degree A-V block Nonspecific ST and T wave abnormality Prolonged QT Abnormal ECG Confirmed by HERO CLARK ([id number]), art editor KAYLIN REEDER ([id number]) on 04/08/2020 3:48:31 PM Referred By: Confirmed By:HERO CLARK
== END 2020-04-06 16:40 | disposition home health service (06) | DRG 872 ==
LOC: ERS 18:42 → 2NO 04-05 00:45
PROVIDERS: ADMIT Internal Medicine; ATTEND Internal Medicine
PROC: 0HQ1XZZ Repair Face Skin, External Approach (ICD-10-PCS; principal; 2020-04-05)
DX: A41.9 Sepsis, unspecified organism (principal); N39.0 Urinary tract infection, site not specified; S01.81XA Laceration without foreign body of other part of head, initial encounter; E11.319 Type 2 diabetes mellitus with unspecified diabetic retinopathy without macular edema; E78.5 Hyperlipidemia, unspecified; I10 Essential (primary) hypertension; W01.0XXA Fall on same level from slipping, tripping and stumbling without subsequent striking against object, initial encounter; H54.8 Legal blindness, as defined in USA; Z89.422 Acquired absence of other left toe(s); Y92.009 Unspecified place in unspecified non-institutional (private) residence as the place of occurrence of the external cause; Z88.0 Allergy status to penicillin; Z79.899 Other long term (current) drug therapy; Z79.82 Long term (current) use of aspirin; Z79.4 Long term (current) use of insulin; E78.00 Pure hypercholesterolemia, unspecified
CPT/HCPCS: 12013; 36415; 36416; 70450; 71045; 72125; 80048; 80053; 81003; 81015; 82550; 83605; 85025; 87040; 90471; 93005; 96361; 96365; J0696; J2001; J3490

== ENCOUNTER 2021-03-23 23:56 | Emergency (ER) | payer MEDICARE, BC ==
[2021-03-24] MEDS ORDERED: Boostrix 0.5 ML (Tdap) VIAL ONE (00:32)
== END 2021-03-24 02:53 ==
LOC: ERS 23:56
DX: S40.022A Contusion of left upper arm, initial encounter (principal); S40.021A Contusion of right upper arm, initial encounter; S20.212A Contusion of left front wall of thorax, initial encounter; E11.9 Type 2 diabetes mellitus without complications; E78.5 Hyperlipidemia, unspecified; E78.00 Pure hypercholesterolemia, unspecified; I10 Essential (primary) hypertension; W19.XXXA Unspecified fall, initial encounter
CPT/HCPCS: 70450; 70486; 72125; 90471; 90715; 93005

== ENCOUNTER 2021-05-27 10:25 | Emergency (ER) | payer MEDICARE, BC ==
[2021-05-27 11:09] LABS: #Basophils 0.1 thou/uL (0.0-0.2); #Eosinphils 0.3 thou/uL (0.0-0.7); #Lymphocytes 3.4 thou/uL (1.20-3.40); #Neutrophils 8.9 thou/uL (1.40-6.50); %Basophils 0.4 % (0.0-1.0); %Eosinophils 2.5 % (0.0-10.0); %Lymphocytes 24.9 % (21.0-51.0); %Monocytes 7.1 % (0.0-10.0); %Neutrophils 65.1 % (42.0-75.0); Hemoglobin 13.5 g/dL (14.0-18.0); Mean Corpuscular HGB CONC 32.5 g/dL (32.0-36.0); Mean Corpuscular Hemoglobin 32.9 pg (27.0-31.0); Mean Platelet Volume 7.8 fL (7.4-10.4); Platelet Count 444 thou/uL (130-400); RBC Distribution Width 12.6 % (11.5-14.5); White Blood Cell (WBC) Count 13.7 thou/uL (4.8-10.8)
[2021-05-27 11:17] LABS: Bacteria/HPF None Seen HPF (None Seen); Bilirubin Negative (Negative); Blood, Urine Negative (Negative); Clarity Clear (Clear); Glucose, Urine (Dipstick) Normal (Negative); Ketone, Urine 10 mg/dL (Negative); Leukocyte Negative Leu/uL (Negative); Nitrite Negative (Negative); Protein, Urine (Dipstick) 30 mg/dL (Neg-Trace); RBC/HPF 0-3 HPF (0-3); Specific Gravity, Urine 1.023 (1.002-1.036); Squamous Epithelial None Seen HPF (0-3); WBC/HPF 0-3 HPF (0-3)
[2021-05-27 11:38] LABS: ALT (SGPT) 25 U/L (8-55); AST (SGOT) 36 U/L (5-34); Albumin 3.9 g/dL (3.4-4.8); Alkaline Phosphatase 116 U/L (40-110); Anion Gap 21 mmol/L (10-20); BUN (Urea Nitrogen) 24 mg/dL (8.4-25.7); Bilirubin, Total 0.7 mg/dL (0.2-1.2); CK (CPK) 138 U/L (30-200); Calc. Creatinine Clearance 0 mL/min (70-130); Calcium 9.8 mg/dL (7.8-10.44); Carbon Dioxide 18 mmol/L (23-31); Chloride 102 mmol/L (98-107); Globulin 3.7 g/dL (2.4-3.5); Glucose 145 mg/dL (83-110); Potassium 4.6 mmol/L (3.5-5.1); Protein, Total 7.6 g/dL (5.8-8.1); Sodium 136 mmol/L (136-145)
== END 2021-05-27 12:11 | disposition home or self-care (01) ==
LOC: ERS 10:25
DX: S20.212A Contusion of left front wall of thorax, initial encounter (principal); E11.9 Type 2 diabetes mellitus without complications; Z79.4 Long term (current) use of insulin; R26.9 Unspecified abnormalities of gait and mobility; E78.5 Hyperlipidemia, unspecified; E78.00 Pure hypercholesterolemia, unspecified; I10 Essential (primary) hypertension; W19.XXXA Unspecified fall, initial encounter
CPT/HCPCS: 51701; 71045; 80053; 81003; 81015; 82550; 84484; 85025; 93005

== ENCOUNTER 2021-07-25 21:12 | Emergency (ER) | payer MEDICARE, BC ==
[2021-07-25 21:54] LABS: #Basophils 0.1 thou/uL (0.0-0.2); #Eosinphils 0.6 thou/uL (0.0-0.7); #Lymphocytes 3.5 thou/uL (1.20-3.40); #Neutrophils 7.6 thou/uL (1.40-6.50); %Basophils 0.4 % (0.0-1.0); %Eosinophils 4.4 % (0.0-10.0); %Lymphocytes 27.4 % (21.0-51.0); %Monocytes 7.6 % (0.0-10.0); %Neutrophils 60.2 % (42.0-75.0); Hemoglobin 13.4 g/dL (14.0-18.0); Mean Corpuscular HGB CONC 32.2 g/dL (32.0-36.0); Mean Corpuscular Hemoglobin 32.1 pg (27.0-31.0); Mean Corpuscular Volume 99.6 fL (78.0-98.0); Mean Platelet Volume 7.3 fL (7.4-10.4); Platelet Count 418 thou/uL (130-400); RBC Distribution Width 12.6 % (11.5-14.5); Red Blood Cell (RBC) Count 4.19 mill/uL (4.70-6.10); White Blood Cell (WBC) Count 12.6 thou/uL (4.8-10.8)
[2021-07-25 22:03] LABS: ALT (SGPT) 26 U/L (8-55); AST (SGOT) 25 U/L (5-34); Albumin 3.7 g/dL (3.4-4.8); Alkaline Phosphatase 133 U/L (40-110); Anion Gap 20 mmol/L (10-20); BUN (Urea Nitrogen) 23 mg/dL (8.4-25.7); Bilirubin, Total 0.5 mg/dL (0.2-1.2); Calc. Creatinine Clearance 0 mL/min (70-130); Calcium 9.9 mg/dL (7.8-10.44); Carbon Dioxide 20 mmol/L (23-31); Chloride 104 mmol/L (98-107); Globulin 3.4 g/dL (2.4-3.5); Glucose 91 mg/dL (83-110); Potassium 4.5 mmol/L (3.5-5.1); Protein, Total 7.1 g/dL (5.8-8.1); Sodium 139 mmol/L (136-145)
== END 2021-07-26 00:12 | disposition home or self-care (01) ==
LOC: ERS 21:12
DX: S01.81XA Laceration without foreign body of other part of head, initial encounter (principal); E11.9 Type 2 diabetes mellitus without complications; E78.5 Hyperlipidemia, unspecified; I10 Essential (primary) hypertension; Z79.899 Other long term (current) drug therapy; W19.XXXA Unspecified fall, initial encounter
CPT/HCPCS: 12011; 36415; 70450; 80053; 85025; 93005

== ENCOUNTER 2021-09-11 11:22 | Inpatient (IN) | payer MEDICARE, BC ==
[2021-09-11 12:37] LABS: #Basophils 0.1 thou/uL (0.0-0.2); #Eosinphils 0.4 thou/uL (0.0-0.7); #Lymphocytes 2.9 thou/uL (1.20-3.40); #Monocytes 0.9 thou/uL (0.11-0.59); #Neutrophils 7.9 thou/uL (1.40-6.50); %Basophils 0.6 % (0.0-1.0); %Eosinophils 3.5 % (0.0-10.0); %Lymphocytes 23.9 % (21.0-51.0); Hemoglobin 13.5 g/dL (14.0-18.0); Mean Corpuscular HGB CONC 35.2 g/dL (32.0-36.0); Mean Corpuscular Hemoglobin 34.9 pg (27.0-31.0); Mean Corpuscular Volume 99.1 fL (78.0-98.0); Mean Platelet Volume 7.4 fL (7.4-10.4); Platelet Count 396 thou/uL (130-400); RBC Distribution Width 12.2 % (11.5-14.5); Red Blood Cell (RBC) Count 3.87 mill/uL (4.70-6.10); White Blood Cell (WBC) Count 12.2 thou/uL (4.8-10.8)
[2021-09-11 13:00] LABS: ALT (SGPT) 24 U/L (8-55); AST (SGOT) 40 U/L (5-34); Albumin 3.6 g/dL (3.4-4.8); Alkaline Phosphatase 122 U/L (40-110); Anion Gap 18 mmol/L (10-20); BUN (Urea Nitrogen) 32 mg/dL (8.4-25.7); Bilirubin, Total 0.5 mg/dL (0.2-1.2); CK (CPK) 316 U/L (30-200); Calc. Creatinine Clearance 0 mL/min (70-130); Calcium 9.3 mg/dL (7.8-10.44); Carbon Dioxide 24 mmol/L (23-31); Chloride 101 mmol/L (98-107); Globulin 3.8 g/dL (2.4-3.5); Glucose 142 mg/dL (83-110); Potassium 5.1 mmol/L (3.5-5.1); Protein, Total 7.4 g/dL (5.8-8.1); Sodium 138 mmol/L (136-145)
[2021-09-11 13:14] LABS: CKMB 5.2 ng/mL (0-6.6)
[2021-09-11 13:34] LABS: Bilirubin Negative (Negative); Blood, Urine Negative (Negative); Clarity Clear (Clear); Glucose, Urine (Dipstick) Normal (Negative); Ketone, Urine Trace mg/dL (Negative); Leukocyte Negative Leu/uL (Negative); Nitrite Negative (Negative); Protein, Urine (Dipstick) 10 mg/dL (Neg-Trace); Specific Gravity, Urine 1.022 (1.002-1.036); Urobilinogen Normal mg/dL (Less than 2)
[2021-09-11] MEDS ORDERED: Aspirin 325 MG TAB ONE (13:49)
[2021-09-11] MEDS ORDERED: Ondansetron ODT 4 MG TAB PO PRN (14:43)
[2021-09-11] MEDS ORDERED: Sodium Chloride 0.9% 1,000 ML IV SCH (14:45)
[2021-09-11] MEDS ORDERED: Dextrose 5% in Water 1,000 ML IV PRN (14:47)
[2021-09-11] MEDS ORDERED: HumaLOG 300 UNITS/3 ML VIAL SC PRN (14:47)
[2021-09-11] MEDS ORDERED: Dextrose 50% Abboject 50 ML SYRINGE SLOW IVP PRN (14:47)
[2021-09-11 16:54] LABS: Troponin I 0.042 ng/mL (< 0.028)
[2021-09-11 17:46] VITALS: BMI 25.0
[2021-09-11 19:51] LABS: Troponin I 0.042 ng/mL (< 0.028)
[2021-09-12 01:21] LABS: SARS-CoV-2 PCR by NAA Not Detected (NotDetected)
[2021-09-12 04:29] LABS: #Eosinphils 0.5 thou/uL (0.0-0.7); #Lymphocytes 3.2 thou/uL (1.20-3.40); #Neutrophils 6.8 thou/uL (1.40-6.50); %Basophils 0.3 % (0.0-1.0); %Eosinophils 4.7 % (0.0-10.0); %Lymphocytes 27.4 % (21.0-51.0); %Monocytes 8.7 % (0.0-10.0); %Neutrophils 58.9 % (42.0-75.0); Hemoglobin 13.4 g/dL (14.0-18.0); Mean Corpuscular Volume 97.3 fL (78.0-98.0); Mean Platelet Volume 7.1 fL (7.4-10.4); Platelet Count 419 thou/uL (130-400); RBC Distribution Width 12.2 % (11.5-14.5); Red Blood Cell (RBC) Count 3.94 mill/uL (4.70-6.10); White Blood Cell (WBC) Count 11.6 thou/uL (4.8-10.8)
[2021-09-12 04:51] LABS: Anion Gap 15 mmol/L (10-20); BUN (Urea Nitrogen) 17 mg/dL (8.4-25.7); Calc. Creatinine Clearance 71 mL/min (70-130); Calcium 9.1 mg/dL (7.8-10.44); Carbon Dioxide 24 mmol/L (23-31); Chloride 103 mmol/L (98-107); Glucose 102 mg/dL (83-110); Potassium 3.7 mmol/L (3.5-5.1); Sodium 138 mmol/L (136-145)
[2021-09-12] MEDS: Aspirin 81 mg Enteric Coated Tablet PO SCH (08:41)
[2021-09-12] MEDS ORDERED: Amlodipine 5 MG TAB PO PRN (08:43)
[2021-09-12] MEDS ORDERED: Amlodipine 5 MG TAB PO SCH (09:00)
[2021-09-12] MEDS: HumaLOG 300 UNITS/3 ML VIAL SC PRN (16:59)
[2021-09-13 05:19] LABS: #Eosinphils 0.5 thou/uL (0.0-0.7); #Lymphocytes 3.2 thou/uL (1.20-3.40); #Monocytes 0.8 thou/uL (0.11-0.59); #Neutrophils 6.4 thou/uL (1.40-6.50); %Basophils 0.4 % (0.0-1.0); %Eosinophils 4.2 % (0.0-10.0); %Lymphocytes 29.5 % (21.0-51.0); %Monocytes 7.7 % (0.0-10.0); %Neutrophils 58.3 % (42.0-75.0); Hemoglobin 13.7 g/dL (14.0-18.0); Mean Corpuscular HGB CONC 35.2 g/dL (32.0-36.0); Mean Corpuscular Hemoglobin 34.5 pg (27.0-31.0); Mean Corpuscular Volume 97.9 fL (78.0-98.0); Mean Platelet Volume 7.4 fL (7.4-10.4); Platelet Count 388 thou/uL (130-400); RBC Distribution Width 12.1 % (11.5-14.5); Red Blood Cell (RBC) Count 3.97 mill/uL (4.70-6.10); White Blood Cell (WBC) Count 10.9 thou/uL (4.8-10.8)
[2021-09-13 05:40] LABS: Anion Gap 14 mmol/L (10-20); BUN (Urea Nitrogen) 22 mg/dL (8.4-25.7); Calc. Creatinine Clearance 71 mL/min (70-130); Calcium 9.4 mg/dL (7.8-10.44); Carbon Dioxide 24 mmol/L (23-31); Chloride 103 mmol/L (98-107); Glucose 150 mg/dL (83-110); Magnesium 1.6 mg/dL (1.6-2.6); Phosphorus 2.8 mg/dL (2.3-4.7); Sodium 137 mmol/L (136-145)
[2021-09-13] MEDS ORDERED: Cyanocobalamin 1000 MCG/ML VIAL IM SCH (08:15)
[2021-09-13] MEDS: Aspirin 81 mg Enteric Coated Tablet PO SCH (08:37)
[2021-09-13] MEDS ORDERED: Amlodipine 5 MG TAB PO SCH (09:00)
[2021-09-13] MEDS ORDERED: Magnesium Sulfate 4 GM in Sodium Chloride 0.9% 250 ML 250 ML IVPB SCH (09:00)
[2021-09-13] MEDS: HumaLOG 300 UNITS/3 ML VIAL SC PRN (12:07)
[2021-09-13 16:16] VITALS: BP 133/65; TEMP 97.9
[2021-09-13] MEDS ORDERED: Cyanocobalamin (Vitamin B-12) 1,000 MCG TAB PO SCH (21:00)
== END 2021-09-13 16:10 | disposition home health service (06) | DRG 683 ==
LOC: ERS 11:22 → 2NO 14:16
PROVIDERS: ADMIT Family Medicine; ATTEND Internal Medicine
DX: N17.9 Acute kidney failure, unspecified (principal); I24.8 Other forms of acute ischemic heart disease; E87.2 Acidosis; E86.0 Dehydration; R53.81 Other malaise; E53.8 Deficiency of other specified B group vitamins; S00.81XA Abrasion of other part of head, initial encounter; W19.XXXA Unspecified fall, initial encounter; E11.9 Type 2 diabetes mellitus without complications; E78.5 Hyperlipidemia, unspecified; E78.00 Pure hypercholesterolemia, unspecified; I10 Essential (primary) hypertension; I44.0 Atrioventricular block, first degree; H54.7 Unspecified visual loss; Z66 Do not resuscitate; D72.829 Elevated white blood cell count, unspecified; Z20.822 Contact with and (suspected) exposure to COVID-19; Z91.81 History of falling; Y92.9 Unspecified place or not applicable; Z89.412 Acquired absence of left great toe; Z88.0 Allergy status to penicillin; Z79.4 Long term (current) use of insulin; Z79.899 Other long term (current) drug therapy; Z79.82 Long term (current) use of aspirin
CPT/HCPCS: 36415; 36416; 51701; 70450; 71045; 80048; 80053; 81003; 82550; 82553; 82607; 82746; 83605; 83735; 83880; 84100; 84443; 84484; 85025; 87040; 87086; 93005; J1815; J3420; J3475; J7050; U0003; U0005

== ENCOUNTER 2021-09-21 10:58 | Observation (INO) | payer MEDICARE, BC ==
[~2021-09-21 10:58] MED LIST changes: -ISOVUE-370 76%-LOCM 1 ML ONE; +Iopamidol-370 76% 500 ML 1 ML ONE
[2021-09-21 11:43] LABS: #Basophils 0.1 thou/uL (0.0-0.2); #Eosinphils 0.5 thou/uL (0.0-0.7); #Lymphocytes 2.8 thou/uL (1.20-3.40); %Basophils 0.3 % (0.0-1.0); %Lymphocytes 17.4 % (21.0-51.0); %Monocytes 6.2 % (0.0-10.0); %Neutrophils 73.2 % (42.0-75.0); Hemoglobin 13.3 g/dL (14.0-18.0); Mean Corpuscular HGB CONC 34.7 g/dL (32.0-36.0); Mean Corpuscular Hemoglobin 33.9 pg (27.0-31.0); Mean Corpuscular Volume 97.9 fL (78.0-98.0); Mean Platelet Volume 7.8 fL (7.4-10.4); Platelet Count 479 thou/uL (130-400); RBC Distribution Width 12.2 % (11.5-14.5); Red Blood Cell (RBC) Count 3.91 mill/uL (4.70-6.10); White Blood Cell (WBC) Count 16.3 thou/uL (4.8-10.8)
[2021-09-21 12:08] LABS: ALT (SGPT) 32 U/L (8-55); AST (SGOT) 27 U/L (5-34); Albumin 3.7 g/dL (3.4-4.8); Alkaline Phosphatase 179 U/L (40-110); Anion Gap 19 mmol/L (10-20); BUN (Urea Nitrogen) 24 mg/dL (8.4-25.7); Bilirubin, Total 0.6 mg/dL (0.2-1.2); Calc. Creatinine Clearance 0 mL/min (70-130); Calcium 9.7 mg/dL (7.8-10.44); Carbon Dioxide 21 mmol/L (23-31); Chloride 100 mmol/L (98-107); Globulin 3.5 g/dL (2.4-3.5); Glucose 79 mg/dL (83-110); Lipase 18 U/L (8-78); Magnesium 1.6 mg/dL (1.6-2.6); Potassium 4.2 mmol/L (3.5-5.1); Protein, Total 7.2 g/dL (5.8-8.1); Sodium 136 mmol/L (136-145)
[2021-09-21 12:26] LABS: CKMB 1.6 ng/mL (0-6.6)
[2021-09-21 12:56] LABS: Bilirubin Negative (Negative); Blood, Urine Negative (Negative); Clarity Clear (Clear); Glucose, Urine (Dipstick) Normal (Negative); Ketone, Urine 10 mg/dL (Negative); Leukocyte Negative Leu/uL (Negative); Nitrite Negative (Negative); Protein, Urine (Dipstick) 10 mg/dL (Neg-Trace); Specific Gravity, Urine 1.049 (1.002-1.036); Urobilinogen Normal mg/dL (Less than 2)
[2021-09-21] MEDS ORDERED: Dextrose 50% Abboject 50 ML SYRINGE SLOW IVP PRN (14:51)
[2021-09-21] MEDS ORDERED: HumaLOG 300 UNITS/3 ML VIAL SC PRN ×2 (14:51)
[2021-09-21] MEDS ORDERED: Dextrose 5% in Water 1,000 ML IV PRN (14:51)
[2021-09-21] MEDS ORDERED: Senokot S 8.6-50 MG TAB PO PRN (14:52)
[2021-09-21] MEDS ORDERED: Ondansetron ODT 4 MG TAB PO PRN (14:52)
[2021-09-21] MEDS ORDERED: Enoxaparin Sodium 40 MG/0.4 ML SYRINGE SC SCH (15:00)
[2021-09-21] MEDS ORDERED: Magnesium Sulfate 2 GM in Sodium Chloride 0.9% 100 ML IVPB SCH (16:00)
[2021-09-21] MEDS ORDERED: Aspirin 325 mg Enteric Coated Tablet PO SCH (16:30)
[2021-09-21] MEDS ORDERED: Magnesium 2 GM/50 ML 2 GM in Premix Bag 1 BAG IVPB SCH (16:30)
[2021-09-21 17:17] LABS: SARS-CoV-2 NAA Rapid Test Not Detected (NotDetected)
[2021-09-21] MEDS ORDERED: Enoxaparin Sodium 40 MG/0.4 ML SYRINGE ONE (17:35)
[2021-09-21] MEDS ORDERED: Magnesium 2 GM/50 ML BAG (IN WATER) ONE (17:35)
[2021-09-21] MEDS ORDERED: Aspirin 325 MG TAB ONE (17:35)
[2021-09-21] MEDS: Atorvastatin Calcium 40 MG TAB PO SCH (20:40)
[2021-09-21 21:04] LABS: CKMB 1.8 ng/mL (0-6.6)
[2021-09-21 22:16] VITALS: BMI 23.3
[2021-09-22 05:51] LABS: #Basophils 0.1 thou/uL (0.0-0.2); #Eosinphils 0.4 thou/uL (0.0-0.7); #Lymphocytes 2.1 thou/uL (1.20-3.40); #Monocytes 0.9 thou/uL (0.11-0.59); #Neutrophils 8.9 thou/uL (1.40-6.50); %Basophils 0.4 % (0.0-1.0); %Monocytes 7.1 % (0.0-10.0); %Neutrophils 72.4 % (42.0-75.0); Hemoglobin 13.5 g/dL (14.0-18.0); Mean Corpuscular HGB CONC 34.6 g/dL (32.0-36.0); Mean Corpuscular Hemoglobin 33.9 pg (27.0-31.0); Mean Corpuscular Volume 98.1 fL (78.0-98.0); Mean Platelet Volume 7.8 fL (7.4-10.4); Platelet Count 455 thou/uL (130-400); RBC Distribution Width 12.3 % (11.5-14.5); Red Blood Cell (RBC) Count 3.98 mill/uL (4.70-6.10); White Blood Cell (WBC) Count 12.3 thou/uL (4.8-10.8)
[2021-09-22 06:08] LABS: Anion Gap 15 mmol/L (10-20); BUN (Urea Nitrogen) 19 mg/dL (8.4-25.7); Calc. Creatinine Clearance 68 mL/min (70-130); Calcium 9.4 mg/dL (7.8-10.44); Carbon Dioxide 27 mmol/L (23-31); Cardiac Risk 3.9 (Less than 4.5); Chloride 99 mmol/L (98-107); Cholesterol 150 mg/dl (< 200 Desired); Glucose 67 mg/dL (83-110); HDL Cholesterol 38 mg/dL (>60 Neg Risk); LDL Cholesterol, Calculated 93 mg/dL; Potassium 4.4 mmol/L (3.5-5.1); Sodium 137 mmol/L (136-145); Triglycerides 93 mg/dL (Less than 150)
[2021-09-22] MEDS: Aspirin 325 mg Enteric Coated Tablet PO SCH (10:05)
[2021-09-22] MEDS: Enoxaparin Sodium 40 MG/0.4 ML SYRINGE SC SCH (10:05)
[2021-09-22] MEDS: Acetaminophen 325 MG TAB PO PRN (10:07)
[2021-09-22] MEDS ORDERED: Electrolyte Replacement Protocol 1 EACH FS SCH (14:30)
[2021-09-22] MEDS ORDERED: Electrolyte Replacement Protocol FS PRN (14:45)
[2021-09-22] MEDS: Atorvastatin Calcium 40 MG TAB PO SCH (21:04)
[2021-09-23 05:27] LABS: #Eosinphils 0.2 thou/uL (0.0-0.7); #Lymphocytes 2.5 thou/uL (1.20-3.40); #Monocytes 0.8 thou/uL (0.11-0.59); #Neutrophils 13.7 thou/uL (1.40-6.50); %Basophils 0.1 % (0.0-1.0); %Lymphocytes 14.6 % (21.0-51.0); %Monocytes 4.9 % (0.0-10.0); %Neutrophils 79.5 % (42.0-75.0); Hemoglobin 12.7 g/dL (14.0-18.0); Mean Corpuscular HGB CONC 33.4 g/dL (32.0-36.0); Mean Corpuscular Hemoglobin 32.8 pg (27.0-31.0); Mean Corpuscular Volume 98.1 fL (78.0-98.0); Mean Platelet Volume 7.1 fL (7.4-10.4); Platelet Count 451 thou/uL (130-400); RBC Distribution Width 12.2 % (11.5-14.5); Red Blood Cell (RBC) Count 3.88 mill/uL (4.70-6.10); White Blood Cell (WBC) Count 17.2 thou/uL (4.8-10.8)
[2021-09-23 05:52] LABS: Anion Gap 13 mmol/L (10-20); BUN (Urea Nitrogen) 19 mg/dL (8.4-25.7); Calc. Creatinine Clearance 64 mL/min (70-130); Calcium 9.1 mg/dL (7.8-10.44); Carbon Dioxide 25 mmol/L (23-31); Chloride 100 mmol/L (98-107); Glucose 109 mg/dL (83-110); Potassium 3.8 mmol/L (3.5-5.1); Sodium 134 mmol/L (136-145)
[2021-09-23] MEDS ORDERED: Magnesium 2 GM/50 ML 2 GM in Premix Bag 1 BAG IVPB SCH (06:15)
[2021-09-23] MEDS: Aspirin 325 mg Enteric Coated Tablet PO SCH (08:18)
[2021-09-23] MEDS: Enoxaparin Sodium 40 MG/0.4 ML SYRINGE SC SCH (08:18)
[2021-09-23] MEDS: Acetaminophen 325 MG TAB PO PRN (08:26)
[2021-09-23 14:13] LABS: Hemoglobin A1c 4.8 % (4.0-6.0)
[2021-09-23 16:03] VITALS: BP 149/78; TEMP 98.2
[2021-09-23] MEDS ORDERED: metFORMIN 500 MG TAB PO SCH (17:00)
[2021-09-24] MEDS ORDERED: Amlodipine 5 MG TAB PO SCH (09:00)
[2021-09-24] MEDS ORDERED: Non-Formulary Item 1 EACH (Insulin Degludec [Tresiba Flextouch U-100] 100 UNIT/ML Insuln. SC SCH (09:00)
[2021-09-24] MEDS ORDERED: FLU VACC QS2021-22(65YR UP)/PF 240 MCG/0.7 ML SYRINGE IM ONE (09:00)
== END 2021-09-23 19:10 ==
LOC: ERS 10:58 → ERHOLD 13:08 → NEURO 18:50
PROVIDERS: ADMIT Internal Medicine; ATTEND Internal Medicine
DX: G45.9 Transient cerebral ischemic attack, unspecified (principal); R53.81 Other malaise; E11.319 Type 2 diabetes mellitus with unspecified diabetic retinopathy without macular edema; I10 Essential (primary) hypertension; D72.829 Elevated white blood cell count, unspecified; H54.62 Unqualified visual loss, left eye, normal vision right eye; E78.5 Hyperlipidemia, unspecified; R29.6 Repeated falls; R77.8 Other specified abnormalities of plasma proteins; E83.42 Hypomagnesemia; I08.1 Rheumatic disorders of both mitral and tricuspid valves; Z79.4 Long term (current) use of insulin; Z79.82 Long term (current) use of aspirin; Z79.899 Other long term (current) drug therapy; Z88.0 Allergy status to penicillin; Z89.412 Acquired absence of left great toe; Z20.822 Contact with and (suspected) exposure to COVID-19
CPT/HCPCS: 70450; 70496; 70498; 70551; 71045; 80048 ×2; 80053; 80061; 81003; 82553; 82962 ×3; 83036; 83690; 83735 ×3; 83880; 84484 ×2; 85025 ×3; 93005; 93306; 95816; 95819; 95957; 96372 ×3; 96375; 96376; 97116; 97139 ×3; 97530; 97535; 99285; G0378 ×4; U0002; 36415; 36416; J1650; J1815; J3475; Q9967

== ENCOUNTER 2022-01-05 09:11 | Emergency (ER) | payer OTHER, MEDICARE, BC | END 2022-01-05 10:53 | disposition home or self-care (01) | LOC: ERS 09:11 | DX: S51.012A Laceration without foreign body of left elbow, initial encounter (principal); S50.12XA Contusion of left forearm, initial encounter; E11.9 Type 2 diabetes mellitus without complications; E78.5 Hyperlipidemia, unspecified; E78.00 Pure hypercholesterolemia, unspecified; I10 Essential (primary) hypertension; W01.0XXA Fall on same level from slipping, tripping and stumbling without subsequent striking against object, initial encounter ==